=== PATIENT | female | born 1995 | race Caucasian/White ===

== ENCOUNTER → 2018-11-26 | Outpatient (CLI) | payer BC ==
--- NOTE | 2018-11-26 14:25 | Diagnostic Imaging Report ---
INDICATION: Pain in the center of the chest. TIME OF EXAM: 01:12 p.m. COMPARISON: No prior studies are available for comparison. FINDINGS: The heart size is normal. The pulmonary vascularity is unremarkable. The lungs are clear. No infiltrate, effusion or pneumothorax is detected. IMPRESSION: No acute cardiopulmonary process is detected. Dictated by: Dictated on workstation # [id number]
--- NOTE | 2018-11-26 15:32 | Diagnostic Imaging Report ---
INDICATION: Mid and upper back pain. TIME OF EXAMINATION: 1:13 PM. FINDINGS: Slight left convexity lower thoracic and upper lumbar scoliotic curvature is noted. The vertebral body heights are maintained. The pedicles and paraspinous line are intact. There are no fractures. IMPRESSION: Mild lower thoracic scoliotic curvature. No acute bony abnormality is detected. Dictated by: Dictated on workstation # [id number]
== END ==
LOC: RAD 12:55
PROVIDERS: ATTEND Family Medicine
DX: M41.84 Other forms of scoliosis, thoracic region (principal); R07.89 Other chest pain
CPT/HCPCS: 71045; 72072

== ENCOUNTER 2019-02-12 23:55 | Emergency (ER) | payer BC, MEDICAID ==
[~2019-02-12] VITALS: Ht 162.6 cm; Wt 54.5 kg
[2019-02-13] MEDS ORDERED: diphenhydrAMINE 25 MG TAB (BENADRYL) PO ONE (00:15)
[2019-02-13] MEDS ORDERED: ACETAMINOPHEN 325 MG TABLET PO ONE (00:15)
[2019-02-13 00:36] LABS: BASOPHILS % (AUTO) 0 % (0-10); EOSINOPHILS # (AUTO) 0.1 10^3/uL (0.0-0.3); EOSINOPHILS % (AUTO) 1 % (0-10); HEMATOCRIT 36 % (35-52); HEMOGLOBIN 12.4 G/DL (11.5-16.0); LYMPHOCYTES # (AUTO) 2.6 X 10^3 (1.0-4.0); LYMPHOCYTES % (AUTO) 25 % (12-44); MEAN CORPUSCULAR HEMOGLOBIN 31 PG (25-34); MEAN CORPUSCULAR HGB CONC 34 G/DL (32-36); MEAN CORPUSCULAR VOLUME 89 FL (80-99); MEAN PLATELET VOLUME 10.4 FL (7.4-10.4); MONOCYTES # (AUTO) 0.8 X 10^3 (0.0-1.0); MONOCYTES % (AUTO) 8 % (0-12); NEUTROPHILS # (AUTO) 6.7 X 10^3 (1.8-7.8); NEUTROPHILS % (AUTO) 66 % (42-75); PLATELET COUNT 193 10^3/uL (130-400); RED CELL DISTRIBUTION WIDTH 12.6 % (10.0-14.5); WHITE BLOOD COUNT 10.1 10^3/uL (4.3-11.0)
[2019-02-13 01:17] LABS: BACTERIA,URINE TRACE /HPF; BILIRUBIN,URINE NEGATIVE (NEGATIVE); CLARITY,URINE CLEAR; COLOR,URINE YELLOW; GLUCOSE, URINE (UA) NEGATIVE (NEGATIVE); KETONES,URINE NEGATIVE (NEGATIVE); LEUKOCYTE ESTERASE ,URINE 1+ (NEGATIVE); NITRITE,URINE NEGATIVE (NEGATIVE); PH,URINE 6 (5-9); PROTEIN,URINE NEGATIVE (NEGATIVE); UROBILINOGEN,URINE NORMAL (NORMAL); WBC,URINE 0-2 /HPF
[2019-02-13 01:18] LABS: AMORPHOUS SEDIMENT,UR MOD AMOR URATES /LPF
--- NOTE | 2019-02-13 01:52 | ED GU-Female ---
General Chief Complaint: NETWORK ENGINEERING ADVISOR Stated Complaint: 11 WKS PREG CRAMPING,DISCHARGE Nursing Triage Note: Pt amb to room #9 with c/o lower abd cramping. Pt reports @ approx 2000 on 02/12/19 abd discomfort began. Pt reports to be apprrox 11wks . Denies spotting or bleeding. Reports increase in clear discharge. Nursing Sepsis Screen: No Definite Risk Source: patient Exam Limitations: no limitations History of Present Illness Date Seen by Provider: Feb 13, 2019 Time Seen by Provider: 00:06 Initial Comments This 23-year-old young lady presents to the emergency room at about 11 weeks gestational age with complaints of pelvic cramping that started around 20:00. She has noticed an increase in vaginal discharge that is clearish white without odor. She has established care with Dr. Payne. She reports an ultrasound performed in the office showed an intrauterine . She reports screening had been performed for vaginal infection and she has not had any new sexual partners since then. Earlier today she was feeling anxious and dizzy. She denies any history of vaginal infections. She does run for exercise and states she has noticed some cramping after exercising. She has eased up on her exercising since then. Allergies and Home Medications Allergies Coded Allergies: Sulfa (Sulfonamide Antibiotics) (Verified Allergy, Unknown, 02/13/19) Patient Home Medication List Home Medication List Reviewed: Yes Review of Systems Review of Systems Constitutional: no symptoms reported EENTM: no symptoms reported Respiratory: no symptoms reported Cardiovascular: no symptoms reported Gastrointestinal: see HPI Genitourinary: see HPI : Yes LMP: Nov 23, 2018 Musculoskeletal: no symptoms reported Skin: no symptoms reported Psychiatric/Neurological: No Symptoms Reported Endocrine: No Symptoms Reported Hematologic/Lymphatic: No Symptoms Reported Past Kvjhrao-Hgpcur-Swtrsi Hx Past Med/Social Hx: Reviewed Nursing Past Med/Soc Hx Patient Social History Alcohol Use: Denies Use Recreational Drug Use: No Smoking Status: Never a Smoker 2nd Hand Smoke Exposure: No Recent Foreign Travel: No Contact w/Someone Who Travel: No Recent Infectious Disease Expo: No Recent Hopitalizations: No Past Medical History Surgeries: Yes (Bowen teeth removal ) Respiratory: No Cardiac: No Neurological: No : Yes Last Menstrual Period: Nov 23, 2018 Hx Total # of Abortions (Sp): 1 (One therapeutic ) Reproductive Disorders: Yes Sexually Transmitted Disease: No HIV/AIDS: No Genitourinary: No Gastrointestinal: No Musculoskeletal: No Endocrine: No Cancer: No Psychosocial: No Integumentary: No Physical Exam Vital Signs Vital Signs - First Documented 02/13/19 00:05 Temp 36.8 Pulse 76 Resp 16 B/P (MAP) 124/89 (101) Pulse Ox 100 O2 Delivery Room Air Capillary Refill : Less Than 3 Seconds Height, Weight, BMI Height: '" Weight: lbs. oz. kg; 20.00 BMI Method: General Appearance: WD/WN, no apparent distress HEENT: PERRL/EOMI, normal ENT inspection Neck: normal inspection Cardiovascular: regular rate, rhythm, no edema, no murmur Respiratory: lungs clear, normal breath sounds, no respiratory distress, no accessory muscle use Gastrointestinal: normal bowel sounds, soft, tenderness (mild at the bilateral adnexa) Extremities: normal inspection, no pedal edema Neurologic/Psychiatric: porcelain buildup assistant II-XII nml as tested, no motor/sensory deficits, alert, normal mood/affect, oriented x 3 Skin: normal color, warm/dry Progress/Results/Core Measures Suspected Sepsis Recent Fever Within 48 Hours: No Infection Criteria Present: None New/Unexplained Altered Menta: No Sepsis Screen: No Definite Risk SIRS Temperature: Pulse: 76 Respiratory Rate: 16 Laboratory Tests 02/13/19 00:30: White Blood Count 10.1 Blood Pressure 124 /89 Mean: 101 Laboratory Tests 02/13/19 00:30: Platelet Count 193 Results/Orders Lab Results Laboratory Tests Test 02/13/19 00:30 02/13/19 00:34 Range/Units White Blood Count 10.1 4.3-11.0 10^3/uL Red Blood Count 4.06 L 4.35-5.85 10^6/uL Hemoglobin 12.4 11.5-16.0 G/DL Hematocrit 36 35-52 % Mean Corpuscular Volume 89 80-99 FL Mean Corpuscular Hemoglobin 31 25-34 PG Mean Corpuscular Hemoglobin Concent 34 32-36 G/DL Red Cell Distribution Width 12.6 10.0-14.5 % Platelet Count 193 130-400 10^3/uL Mean Platelet Volume 10.4 7.4-10.4 FL Neutrophils (%) (Auto) 66 42-75 % Lymphocytes (%) (Auto) 25 12-44 % Monocytes (%) (Auto) 8 0-12 % Eosinophils (%) (Auto) 1 0-10 % Basophils (%) (Auto) 0 0-10 % Neutrophils # (Auto) 6.7 1.8-7.8 X 10^3 Lymphocytes # (Auto) 2.6 1.0-4.0 X 10^3 Monocytes # (Auto) 0.8 0.0-1.0 X 10^3 Eosinophils # (Auto) 0.1 0.0-0.3 10^3/uL Basophils # (Auto) 0.0 0.0-0.1 10^3/uL Human Chorionic Gonadotropin, Quant 61561 H <5 MIU/ML Urine Color YELLOW Urine Clarity CLEAR Urine pH 6 5-9 Urine Specific [place] 1.025 H 1.016-1.022 Urine Protein NEGATIVE NEGATIVE Urine Glucose (UA) NEGATIVE NEGATIVE Urine Ketones NEGATIVE NEGATIVE Urine Nitrite NEGATIVE NEGATIVE Urine Bilirubin NEGATIVE NEGATIVE Urine Urobilinogen NORMAL NORMAL MG/DL Urine Leukocyte Esterase 1+ H NEGATIVE Urine RBC (Auto) NEGATIVE NEGATIVE Urine RBC NONE /HPF Urine WBC 0-2 /HPF Urine Squamous Epithelial Cells 2-5 /HPF Urine Crystals PRESENT H /LPF Urine Amorphous Sediment MOD PEPITO URATES H /LPF Urine Bacteria TRACE /HPF Urine Casts NONE /LPF Urine Mucus NEGATIVE /LPF Urine Culture Indicated NO My Orders Orders - RANJIT JAMES MD Cbc With Automated Diff (02/13/19 00:14) Hcg,Quantitative (02/13/19 00:14) Ua Culture If Indicated (02/13/19 00:14) Acetaminophen Tablet/Caplet (Tylenol T (02/13/19 00:15) Diphenhydramine Tablet (Benadryl Tablet) (02/13/19 00:15) Medications Given in ED Current Medications Medications Dose Ordered Sig/Ashley Route Start Time Stop Time Status Last Admin Dose Admin Acetaminophen 650 mg ONCE ONCE PO 02/13/19 00:15 02/13/19 00:17 DC 02/13/19 00:27 650 MG Diphenhydramine HCl 25 mg ONCE ONCE PO 02/13/19 00:15 02/13/19 00:17 DC 02/13/19 00:27 25 MG Vital Signs/I&O 02/13/19 02/13/19 00:05 01:58 Temp 36.8 36.8 Pulse 76 61 Resp 16 16 B/P (MAP) 124/89 (101) 98/64 (101) Pulse Ox 100 99 O2 Delivery Room Air Room Air Capillary Refill : Less Than 3 Seconds Blood Pressure Mean: 101 Progress Note : Progress Note Oral hydration was encouraged. She was treated with Tylenol and Benadryl. She had significant improvement in her cramping. HCG level was appropriate for gestational age. No vaginal bleeding was reported. Patient is to follow-up with Dr. Payne. Departure Impression Primary Impression: Abdominal cramping affecting Disposition: HOME, SELF-CARE Condition: Improved Departure-Patient Inst. Decision time for Depature: 01:51 Referrals: ANNE LAWRENCE MD (PCP/Family) Primary Care Physician Patient Instructions: Stomach Pain in Early Add. Discharge Instructions: Stay well hydrated with plenty of clear liquids. If cramping returns, you may safely try Tylenol (acetaminophen) up to 650 mg every 6 hours and/or Benadryl (d iphenhydramine) up to 25 mg every [address] Payne's office later this morning to inform them of your cramping issues. Return to the emergency room if you have worsening symptoms. All discharge instructions reviewed with patient and/or family. Voiced understanding. Copy Copies To 1: FELIBERTO PAYNE MD, JOSHUA T MD Feb 13, 2019 01:52
[2019-02-13 01:58] VITALS: BP 98/64
== END 2019-02-13 01:58 | disposition home or self-care (01) ==
LOC: EDUNIT# 23:55 → ER 23:59
DX: O26.891 Other specified pregnancy related conditions, first trimester (principal); R10.9 Unspecified abdominal pain; Z3A.11 11 weeks gestation of pregnancy; Z88.2 Allergy status to sulfonamides
CPT/HCPCS: 36415; 81000; 84702; 85025

== ENCOUNTER 2019-06-06 22:24 | Emergency (ER) | payer BC, MEDICAID ==
[~2019-06-06] VITALS: Ht 162 cm; Wt 62.0 kg
[2019-06-06] MEDS ORDERED: ACETAMINOPHEN 500 MG TAB (TYLENOL) PO STA (23:05)
--- NOTE | 2019-06-06 23:13 | ED Cough/URI ---
General Chief Complaint: Cough/Cold/Flu Symptoms Stated Complaint: 28 WKS PREG/CP/COLD FLU SYMPTOMS Source: patient Exam Limitations: no limitations History of Present Illness Date Seen by Provider: Jun 06, 2019 Time Seen by Provider: 22:54 Initial Comments Here with report of fever, chills, body aches, runny nose and mild cough. She is approximately 28 weeks . Denies nausea, vomiting or diarrhea. Timing/Duration: this morning Severity/Quality: mild, dry cough Prior Episodes/Possible Cause: no prior episodes Modifying Factors: Improves With Rest Associated Symptoms: cough, fever/chills, muscle aches, nasal congestion, nasal drainage, shortness of breath, sore throat Allergies and Home Medications Allergies Coded Allergies: Sulfa (Sulfonamide Antibiotics) (Verified Allergy, Unknown, 02/13/19) Patient Home Medication List Home Medication List Reviewed: Yes Review of Systems Review of Systems Constitutional: see HPI, chills, fever EENTM: nose congestion; No ear pain Respiratory: cough; No short of breath Cardiovascular: no symptoms reported Gastrointestinal: no symptoms reported Genitourinary: no symptoms reported : Yes Skin: no symptoms reported Past Ataviqh-Biyuhm-Nmnphl Hx Past Med/Social Hx: Reviewed Nursing Past Med/Soc Hx Patient Social History Alcohol Use: Denies Use Recreational Drug Use: No Smoking Status: Never a Smoker 2nd Hand Smoke Exposure: No Recent Foreign Travel: No Contact w/Someone Who Travel: No Recent Hopitalizations: No Past Medical History Surgeries: Yes (Warner teeth removal ) Respiratory: No Cardiac: No Neurological: No Reproductive Disorders: Yes Sexually Transmitted Disease: No HIV/AIDS: No Genitourinary: No Gastrointestinal: No Musculoskeletal: No Endocrine: No Cancer: No Psychosocial: No Integumentary: No Family Medical History Reviewed Nursing Family Hx No Pertinent Family Hx Physical Exam Capillary Refill : Height: '" Weight: lbs. oz. kg; 20.00 BMI Method: General Appearance: WD/WN, no apparent distress HEENT: PERRL/EOMI, pharyngeal erythema, other (bilateral nasal congestion with clear rhinorrhea moderate erythema) Neck: full range of motion, supple Respiratory: lungs clear, normal breath sounds Cardiovascular: no murmur, tachycardia Gastrointestinal: non tender, soft, other (gravid 4 cm above the umbilicus) Extremities: non-tender, normal inspection Neurologic/Psychiatric: alert, oriented x 3 Skin: normal color, warm/dry Progress/Results/Core Measures Suspected Sepsis SIRS Temperature: Pulse: Respiratory Rate: Blood Pressure / Mean: Results/Orders Micro Results Microbiology 06/06/19 Influenza Types A,B Antigen (JASON) - Final, Complete My Orders Orders - BETHANY POZO MD Influenza A And B Antigens (06/06/19 22:27) Acetaminophen Tablet (Tylenol Tablet) (06/06/19 23:05) Oseltamivir 75 Mg Capsule (Tamiflu 75 (06/06/19 23:15) Vital Signs/I&O Capillary Refill : Progress Note : Progress Note Seen and evaluated. Influenza screen ordered. Patient has positive for influenza B. Patient is in the high risk category according to CDC guidelines. This was discussed with the patient. Tamiflu 75 mg by mouth initiated. Tylenol 1 g by mouth given. Discharged home with return precautions. Patient verbalize understanding instructions and agreement with plan. Departure Impression Primary Impression: Influenza B Disposition: HOME, SELF-CARE Condition: Stable Departure-Patient Inst. Decision time for Depature: 23:11 Referrals: FELIBERTO DRAKE MD (PCP) Primary Care Physician ANNE LAWRENCE MD (Family) Primary Care Physician Patient Instructions: Flu, Adult (DC) Add. Discharge Instructions: All discharge instructions reviewed with patient and/or family. Voiced understanding. Take medications as directed. You may take Tylenol/acetaminophen 650 mg every 6 hours as needed for fever or pain. You may use Afrin nasal spray or the generic, 12 hour relief, 2 sprays to each nostril twice daily for 3 days only and then stop. Do not use more than 3 days. Follow-up with your OB doctor and inform them of the diagnosis. Return for worse pain, fever, vomiting, weakness, breathing problems or other concerns as needed. Scripts Oseltamivir Phosphate (Oseltamivir Phosphate) 75 Mg Capsule 75 MG PO BID for 5 Days, #9 CAP 0 Refills Prov: BETHANY POZO MD 06/06/19 Work/School Note: Work Release Form Date Seen in the Emergency Department: Jun 06, 2019 Return to Work: Jun 08, 2019 Restrictions: Return-No Fever (24hrs) Copy Copies To 1: FELIBERTO DRAKE MD, TIMOTHY D MD Jun 06, 2019 23:13
[2019-06-06] MEDS ORDERED: OSEL75CA15 PO (23:14)
[2019-06-06] MEDS ORDERED: OSELTAMIVIR 75 MG (TAMIFLU) CAPSULE PO ONE (23:15)
[2019-06-06 23:33] VITALS: BP 122/80
== END 2019-06-06 23:34 | disposition home or self-care (01) ==
LOC: EDUNIT# 22:24 → ER 22:26
DX: O99.513 Diseases of the respiratory system complicating pregnancy, third trimester (principal); J10.1 Influenza due to other identified influenza virus with other respiratory manifestations; Z3A.28 28 weeks gestation of pregnancy; Z88.2 Allergy status to sulfonamides
CPT/HCPCS: 87804

== ENCOUNTER 2019-08-26 07:00 | Inpatient (IN) | payer BC, MEDICAID ==
--- NOTE | 2019-08-21 10:43 | Discharge Inst-Surgical ---
Discharge Inst-Surgical Depart Medication/Instructions New, Converted or Re-Newed RX: RX on Chart Consults/Follow Up Patient Instructions: as directed Orders & Referrals Follow Up Appt: Call to make follow up appt. for patient in 4 weeks. Activity Per routine post vaginal delivery instructions. Please call in RX to patient pharmacy. Diet as tolerated Patient may shower or tub bathe as desired. Activity Activity as Tolerated: No Diet Discharge Diet: No Restrictions FELIBERTO DRAKE MD Aug 21, 2019 10:43
[2019-08-26] VITALS (54 sets, daily range): BP systolic 106–141; BP diastolic 56–92
[~2019-08-26] VITALS: Ht 162.6 cm; Wt 69.0 kg
[~2019-08-26 07:00] MED LIST: OSEL75CA15 PO
[2019-08-26] MEDS ORDERED: OXYTOCIN PRE-MIX DRIP 500 ML IV SCH ×2 (07:15→20:28)
--- NOTE | 2019-08-26 07:16 | NUR ---
TENISHA ELDRIDGE presented to unit from ED, accompanied by significant other, with c/o INDUCTION. TENISHA ELDRIDGE weighed, gowned, voided, and to bed. EFHM and TOCO applied, VS taken. TENISHA ELDRIDGE oriented to bed controls, call light, TV, heat, and A/C controls.
--- OUTSIDE RECORDS SUMMARY | 2019-08-26 07:32 | XMS REPORT | Continuity of Care Document ---
Author Organization Unknown Address Unknown Phone Unavailable Allergies Active Description Code Type Severity Reaction Onset Reported/Identified Relationship to Patient Clinical Status Yes Sulfa (Sulfonamide Antibiotics) [id number] Drug Allergy Unknown N/A 019 Medications There is no data. Problems Date Dx Coded Attending Type Code Diagnosis Diagnosed By 11/29/2018 ANNE LAWRENCE MD Ot M41. 84 OTHER FORMS OF SCOLIOSIS, THORACIC REGIO 11/29/2018 ANNE LAWRENCE MD Ot R07. 89 OTHER CHEST PAIN 12/02/2018 ANNE LAWRENCE MD Ot M41. 84 OTHER FORMS OF SCOLIOSIS, THORACIC REGIO 12/02/2018 ANNE LAWRENCE MD Ot R07. 89 OTHER CHEST PAIN 12/16/2018 ANNE LAWRENCE MD Ot M41. 84 OTHER FORMS OF SCOLIOSIS, THORACIC REGIO 12/16/2018 ANNE LAWRENCE MD Ot R07. 89 OTHER CHEST PAIN 02/13/2019 RANJIT JAMES MD Ot O26.891 OT RELATED CONDITIONS, FIRST 02/13/2019 RANJIT JAMES MD Ot R10.9 UNSPECIFIED ABDOMINAL PAIN 02/13/2019 RANJIT JAMES MD Ot Z3A.11 11 WEEKS GESTATION OF 02/13/2019 RANJIT JAMES MD Ot Z88.2 ALLERGY STATUS TO SULFONAMIDES STATUS 02/17/2019 RANJIT JAMES MD Ot O26.891 OT RELATED CONDITIONS, FIRST 02/17/2019 RANJIT JAMES MD Ot R10.9 UNSPECIFIED ABDOMINAL PAIN 02/17/2019 RANJIT JAMES MD Ot Z3A.11 11 WEEKS GESTATION OF 02/17/2019 RANJIT JAMES MD Ot Z88.2 ALLERGY STATUS TO SULFONAMIDES STATUS 06/06/2019 SÁNCHEZ VELASQUEZ, BETHANY Murrell Ot J10.1 FLU DUE TO OTH IDENT INFLUENZA VIRUS W O 06/06/2019 BETHANY POZO MD Ot O99.513 DISEASES OF THE RESP SYS COMP , 06/06/2019 BETHANY POZO MD, Ot Z3A.28 28 WEEKS GESTATION OF 06/06/2019 BETHANY POZO MD, Ot Z88.2 ALLERGY STATUS TO SULFONAMIDES STATUS 06/10/2019 BETHANY POZO MD, Ot J10.1 FLU DUE TO OTH IDENT INFLUENZA VIRUS W O 06/10/2019 BETHANY POZO MD, Ot O99.513 DISEASES OF THE RESP SYS COMP , 06/10/2019 BETHANY POZO MD, Ot Z3A.28 28 WEEKS GESTATION OF 06/10/2019 BETHANY POZO MD, Ot Z88.2 ALLERGY STATUS TO SULFONAMIDES STATUS Procedures There is no data. Results Test Result Range Complete blood count (CBC) with automate d white blood cell (WBC) differential - 02/13/19 00:30 Blood leukocytes automated count (number/volume) 10.1 10*3/uL 4.3-11.0 Blood erythrocytes automated count (number/volume) 4.06 10*6/uL 4.35-5.85 Venous blood hemoglobin measurement (mass/volume) 12.4 g/dL 11.5-16.0 Blood hematocrit (volume fraction) 36 % 35-52 Automated erythrocyte mean corpuscular volume 89 [ foz_us] 80-99 Automated erythrocyte mean corpuscular h emoglobin (mass per erythrocyte) 31 pg 25-34 Automated erythrocyte mean corpuscular h emoglobin concentration measurement (mass/volume) 34 g/dL 32-36 Automated erythrocyte distribution width ratio 12. 6 % 10.0- 14.5 Automated blood platelet count (count/volume) 193 10*3/uL 130-400 Automated blood platelet mean volume measurement 10.4 [foz_us] 7.4-10.4 Automated blood neutrophils/100 leukocytes 66 % 42-75 Automated blood lymphocytes/100 leukocytes 25 % 12-44 Blood monocytes/100 leukocytes 8 % 0-12 Automated blood eosinophils/100 leukocytes 1 % 0-10 Automated blood basophils/100 leukocytes 0 % 0-10 Blood neutrophils automated count (number/volume) 6.7 10*3 1.8-7.8 Blood lymphocytes automated count (number/volume) 2.6 10*3 1.0-4.0 Blood monocytes automated count (number/volume) 0. 8 10*3 0.0-1.0 Automated eosinophil count 0.1 10*3/uL 0 .0-0.3 Automated blood basophil count (count/volume) 0.0 10*3/uL 0.0-0.1 Serum or plasma choriogonadotropin measu rement (units/volume) - 02/13/19 00:30 Serum or plasma choriogonadotropin measurement (units/ volume) 16035 m[iU]/mL <5 Complete urinalysis with reflex to cultu re - 02/13/19 00:34 Urine color determination YELLOW NRG Urine clarity determination CLEAR NR G Urine pH measurement by test strip 6 5-9 Specific gravity of urine by test strip 1.025 1.016-1.022 Urine protein assay by test strip, semi-quantitative NEGATIVE NEGATIVE Urine glucose detection by automated test strip NE GATIVE NEGATIVE Erythrocytes detection in urine sediment by light micr oscopy NEGATIVE NEGATIVE Urine ketones detection by automated test strip NE GATIVE NEGATIVE Urine nitrite detection by test strip NEGATIVE NEGATIVE Urine total bilirubin detection by test strip NEGA TIVE NEGATIVE Urine urobilinogen measurement by automated test strip (mass/volume) NORMAL NORMAL Urine leukocyte esterase detection by dipstick 1+ NEGATIVE Automated urine sediment erythrocyte cou nt by microscopy (number/high power field) NONE NRG Automated urine sediment leukocyte count by microscopy (number/high power field) [HPF] NRG Bacteria detection in urine sediment by light microsco py TRACE NRG Squamous epithelial cells detection in u rine sediment by light microscopy 2-5 NRG Crystals detection in urine sediment by light microsco py PRESENT NRG Casts detection in urine sediment by light microscopy NONE NRG Mucus detection in urine sediment by light microscopy NEGATIVE NRG Complete urinalysis with reflex to culture NO NRG Amorphous sediment detection in urine sediment by ligh t microscopy MOD PEPITO URATES NRG Influenza virus A and B antigen detectio n - 06/06/19 22:35 CALL POSITIVES (F1 HELP) GRAY @ 9077 NRG FLU RESULT POSITIVE FOR INFLUENZA B ANT IGEN, NEG FOR A ANTIGEN, BY IA NRG Encounters ACCT No. Visit Date/Time Discharge Status Pt. Type Provider Facility Loc./Unit Complaint [id number] 06/06/2019 22:26:00 020 23:34:00 DIS Emergency SÁNCHEZ VELASQUEZ, BETHANY Murrell [facility] ER 28 WKS PREG/CP/ COLD FLU SYMPTOMS [id number] 02/12/2019 23:59:00 019 01:58:00 DIS Emergency ERIKA VELASQUEZ, RANJIT Mo [facility] ER 11 WKS PREG CRAMPING,DISCHARGE [id number] 11/26/2018 12:55:00 23:59:59 CLS Outpatient HOWARD VELASQUEZ, ANNE Miller [facility] RAD CHEST PAIN,RIB PAIN,TSP INE PAIN [id number] 08/26/2019 07:00:00 P RUBI DRAKE MD, FELIBERTO CARBALLO
[2019-08-26 07:59] LABS: BASOPHILS % (AUTO) 0 % (0-10); EOSINOPHILS % (AUTO) 0 % (0-10); HEMATOCRIT 37 % (35-52); HEMOGLOBIN 12.5 G/DL (11.5-16.0); LYMPHOCYTES # (AUTO) 2.2 X 10^3 (1.0-4.0); LYMPHOCYTES % (AUTO) 21 % (12-44); MEAN CORPUSCULAR HEMOGLOBIN 30 PG (25-34); MEAN CORPUSCULAR HGB CONC 34 G/DL (32-36); MEAN CORPUSCULAR VOLUME 90 FL (80-99); MEAN PLATELET VOLUME 11.6 FL (7.4-10.4); MONOCYTES # (AUTO) 1.2 X 10^3 (0.0-1.0); MONOCYTES % (AUTO) 11 % (0-12); NEUTROPHILS # (AUTO) 7.1 X 10^3 (1.8-7.8); NEUTROPHILS % (AUTO) 68 % (42-75); PLATELET COUNT 174 10^3/uL (130-400); RED CELL DISTRIBUTION WIDTH 12.9 % (10.0-14.5); WHITE BLOOD COUNT 10.5 10^3/uL (4.3-11.0)
[2019-08-26] MEDS: D5 LR IV SOLUTION 1,000 ML IV SCH ×2 (08:04→12:24)
[2019-08-26 09:18] LABS: BILIRUBIN,URINE NEGATIVE (NEGATIVE); CLARITY,URINE CLEAR; COLOR,URINE YELLOW; GLUCOSE, URINE (UA) NEGATIVE (NEGATIVE); KETONES,URINE NEGATIVE (NEGATIVE); LEUKOCYTE ESTERASE ,URINE NEGATIVE (NEGATIVE); NITRITE,URINE NEGATIVE (NEGATIVE); PH,URINE 6.5 (5-9); PROTEIN,URINE NEGATIVE (NEGATIVE)
[2019-08-26] MEDS ORDERED: fentaNYL 2 mcg/ml BUPIVA 0.125 100 ML ONE (09:21)
[2019-08-26] MEDS ORDERED: LACTATED RINGERS 1,000 ML IV ONE (09:21)
[2019-08-26 09:29] LABS: BACTERIA,URINE FEW /HPF; RBC,URINE RARE /HPF; WBC,URINE RARE /HPF
[2019-08-26] MEDS ORDERED: BUPIVACAINE 0.25% 30 ML (SENSORCAINE) VIAL ONE (09:36)
[2019-08-26] MEDS ORDERED: fentaNYL INJECTION 100 MCG/2 ML AMP ONE (09:37)
--- NOTE | 2019-08-26 09:45 | NUR ---
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 Procedure explained, consent reviewed and signed by anesthesia. Questions answered to patient's satisfaction. Time out taken to verify correct patient/procedure. Patient up to side of bed, assisted into sitting position. Betadine prep done x3 and sterile drape applied. Local done, see anesthesia record. Test dose given, see anesthesia record for drug and dosage. Epidural catheter secured in place. Epidural placement complete. Assisted back into bed, monitors adjusted. Epidural dosed, see anesthesia record. Epidural of Fentanyl/Bupivicaine @ 12 cc/hr stated per pump. Patient tolerated procedure well.
[2019-08-26] MEDS: EPIDURAL (fentaNYL 2 MCG/ML BUPIVA 0.125%)100 ML BAG EPI PRN ×2 (09:57→17:13)
[2019-08-26] MEDS ORDERED: LACTATED RINGERS 1,000 ML IV SCH (10:17)
[2019-08-26] MEDS ORDERED: diphenhydrAMINE 50 MG/ML INJ (BENADRYL) IV PRN (10:30)
[2019-08-26] MEDS ORDERED: ONDANSETRON 4 MG/2 ML (SDV) Z0FRAN IV PRN (10:30)
[2019-08-26] MEDS ORDERED: NALOXONE 0.4 MG/ML 1 ML (NARCAN) VIAL IV PRN ×2 (10:30)
[2019-08-26] MEDS ORDERED: METOCLOPRAMIDE INJ 10 MG/2 ML (REGLAN) IV PRN (10:30)
[2019-08-26] MEDS ORDERED: hydrOXYzine (VISTARIL/ATARAX) 25 MG capsule/tablet ONE (11:42)
[2019-08-26] MEDS ORDERED: hydrOXYzine (VISTARIL/ATARAX) 25 MG capsule/tablet PO NR (11:45)
[2019-08-26] MEDS: ONDANSETRON 4 MG/2 ML (SDV) Z0FRAN IVP PRN ×2 (11:48→14:58)
[2019-08-26] MEDS ORDERED: PNV11TAB5 PO (13:21)
[2019-08-26] MEDS ORDERED: LIDOCAINE/EPI 2% 1:200,00 (XYLOCAINE) 10 ML VIAL ONE (18:50)
[2019-08-26] MEDS ORDERED: KETOROLAC 30 MG/ML VIAL ONE (20:22)
[2019-08-26] MEDS ORDERED: TETANUS,DIPTH,PERTUSS P/F (BOOSTRIX) 0.5 ML VIAL IM ONE (20:30)
[2019-08-26] MEDS ORDERED: ONDANSETRON 4 MG/2 ML (SDV) Z0FRAN IVP PRN (20:30)
[2019-08-26] MEDS ORDERED: BENZOCAINE/MENTHOL (DERMOPLAST) 60 ML CAN TP PRN (20:30)
[2019-08-26] MEDS ORDERED: MEASLES,MUMPS,RUBELLA 1 EA INJ SC ONE (20:30)
[2019-08-26] MEDS: KETOROLAC 30 MG/ML VIAL IVP SCH (20:32)
--- NOTE | 2019-08-26 20:47 | OPERATIVE REPORT ---
DATE OF SERVICE: 08/26/2019 DELIVERY NOTE The patient delivered by term spontaneous vaginal delivery at 39 weeks gestation a viable female infant with Apgars of 9 and 9 at 1 and 5 minutes respectively, weight of 7 pounds 1 ounce. time of 2000. Cord pH is pending. The infant was delivered over a second-degree laceration that was a tear of perineum posterior vaginal wall and perineal skin. The delivery was accomplished under epidural, augmented with local in the perineum. The infant was bulb suctioned on delivery of the head and again on completion of delivery. The umbilical cord was doubly clamped when it was pulseless. Father cut the cord, the baby was passed to mom's abdomen. Cord bloods were obtained. The placenta delivered fairly promptly spontaneously Mott's. It was a heart shaped placenta with a 3-vessel cord. The cervix, vagina, rectum, and perineum were examined and found intact, except for the tear to the posterior vaginal wall and perineal skin and perineal body, which were repaired with a single suture of 3-0 Vicryl Rapide in the usual manner without difficulty to good hemostasis. Sponge and needle counts were correct on completion of delivery and repair. Estimated blood loss was around 200 mL. The patient tolerated the delivery and the repair well and remained in the LDR for recovery. The baby remained with the mom. Job ID: [id number] DocumentID: [id number] Dictated Date: 08/26/2019 20:22:44 Hair Cutter Date: 08/26/2019 20:46:25 Dictated By: FELIBERTO DRAKE MD
[2019-08-26] MEDS: oxyCODONE/APAP 5/325MG (PERCOCET 5) TABLET PO PRN (22:35)
[2019-08-26] MEDS: DOCUSATE SODIUM 100 MG (COLACE) CAP PO SCH (22:35)
--- NOTE | 2019-08-26 23:00 | NUR ---
pt up to the bathroom, positive void. pt assisted to w'c and taken down to room 310. pt orientated to room. call light within reach. info papers discussed. pt denies any needs. will continue to monitor.
[2019-08-27] MEDS: KETOROLAC 30 MG/ML VIAL IVP SCH (02:37)
[2019-08-27] MEDS: oxyCODONE/APAP 5/325MG (PERCOCET 5) TABLET PO PRN ×4 (03:02→23:05)
[2019-08-27 03:30] VITALS: BP 115/66
--- NOTE | 2019-08-27 07:50 | Progress Note ---
Standard Progress Note Progress Notes/Assess & Plan Date Seen by a Provider: Aug 27, 2019 Time Seen by a Provider: 07:49 Progress/Assessment & Plan This patient is without complaint. She is ambulating, voiding, tolerating oral intake well has good pain control. Vital Signs 08/26/19 08/27/19 17:30 03:30 Temp 37.0 Pulse 77 Resp 18 B/P (MAP) 115/66 (82) Pulse Ox 99 O2 Delivery Room Air VSS. Patient is afebrile. Fundus is firm below the umbilicus is nontender. Extremities show no clubbing cyanosis. There is no Homans sign. Assessment and plan day number 1 status post term spontaneous vaginal delivery doing well plan is routine convalescence care Final Diagnosis 39 week spontaneous vaginal delivery FELIBERTO DRAKE MD Aug 27, 2019 07:50
[2019-08-27] MEDS ORDERED: DCS100C PO (07:58)
[2019-08-27] MEDS ORDERED: OXYC1TAB87 PO (07:58)
[2019-08-27] MEDS ORDERED: IBUP-1780 PO (07:58)
[2019-08-27 08:50] VITALS: BP 113/73
--- NOTE | 2019-08-27 08:50 | NUR ---
Perineal exam WNL's. Complains of severe pain and stitches are "bleeding". Moves very cautiously. S.o. asleep. 1230 Complains of severe pain - moves very slowly and cautiously. Gave another ice pack and witch bianca pads.
[2019-08-27] MEDS: IBUPROFEN 800 MG (MOTRIN) TAB PO SCH ×3 (08:55→22:00)
[2019-08-27] MEDS: DOCUSATE SODIUM 100 MG (COLACE) CAP PO SCH ×2 (08:55→20:28)
--- NOTE | 2019-08-27 11:08 | Anesthesia-General Post-Op ---
General Patient Condition Mental Status/LOC: Same as Preop Cardiovascular: Satisfactory Nausea/Vomiting: Absent Respiratory: Satisfactory Pain: Controlled Complications: Absent Post Op Complications Complications None Follow Up Care/Instructions Patient Instructions None needed. Anesthesia/Patient Condition Patient Condition Patient is doing well, no complaints, stable vital signs, no apparent adverse anesthesia problems. No complications reported per nursing. ANY CARRERA CRNA Aug 27, 2019 11:08
[2019-08-27] MEDS ORDERED: WITCH HAZEL(TUCKS) 40 EA JAR ONE (13:02)
[2019-08-27] MEDS ORDERED: WITCH HAZEL(TUCKS) 40 EA JAR TOP PRN (15:00)
[2019-08-27 16:15] VITALS: BP 117/66
[2019-08-27 20:30] VITALS: BP 116/78
[2019-08-28 02:15] VITALS: BP 124/80
[2019-08-28] MEDS: IBUPROFEN 800 MG (MOTRIN) TAB PO SCH ×2 (04:05→10:01)
--- NOTE | 2019-08-28 08:10 | Progress Note ---
Standard Progress Note Progress Notes/Assess & Plan Date Seen by a Provider: Aug 28, 2019 Time Seen by a Provider: 08:09 Progress/Assessment & Plan This patient is without complaint. She is ambulating, voiding, tolerating oral intake well has good pain control. Vital Signs 08/26/19 08/27/19 17:30 03:30 Temp 37.0 Pulse 77 Resp 18 B/P (MAP) 115/66 (82) Pulse Ox 99 O2 Delivery Room Air VSS. Patient is afebrile. Fundus is firm below the umbilicus is nontender. Extremities show no clubbing cyanosis. There is no Homans sign. Assessment and plan day number 1 status post term spontaneous vaginal delivery doing well plan is routine convalescence care August 28, 2019 Patient is without complaint. She is ambulating, voiding, tolerating oral intake well has good pain control. She does complain of some anxiety with which she has issues in the past Vital Signs 08/28/19 02:15 Temp 36.4 Pulse 75 Resp 18 B/P (MAP) 124/80 (95) Pulse Ox 99 O2 Delivery Room Air Vital signs are stable. Patient is afebrile. Fundus is firm below the umbilicus and nontender. Extremities show no clubbing cyanosis. There is no Homans sign. Assessment and plan day number 2 status post term spontaneous vaginal delivery at 39 weeks gestation. Patient is doing well. We will add hydroxyzine to her medications when necessary for anxiety. Plan is for discharge home with follow-up in clinic Final Diagnosis 39 week spontaneous vaginal delivery FELIBERTO DRAKE MD Aug 28, 2019 08:10
[2019-08-28] MEDS ORDERED: HYDR-3584 PO (08:11)
[2019-08-28] MEDS ORDERED: hydrOXYzine (ATARAX) 10 MG TAB PO PRN (08:15)
[2019-08-28] MEDS ORDERED: hydrOXYzine (VISTARIL/ATARAX) 25 MG capsule/tablet PO PRN (08:45)
[2019-08-28 09:15] VITALS: BP 120/71
[2019-08-28] MEDS: DOCUSATE SODIUM 100 MG (COLACE) CAP PO SCH (10:00)
[2019-08-28] MEDS: oxyCODONE/APAP 5/325MG (PERCOCET 5) TABLET PO PRN (10:01)
[2019-08-28] MEDS ORDERED: DIBUCAINE (NUPERCAINAL) 1% OINT 30 GM TOP PRN (10:45)
[2019-08-28 13:00] VITALS: BP 115/82
--- NOTE | 2019-08-28 16:30 | NUR ---
TENISHA ELDRIDGE demonstrates understanding of discharge instructions and accurately returns instructions upon questioning. Copy of Post-Discharge Instructions and Medication Discharge Instructions given to pt. TENISHA ELDRIDGE is able to manage continuing needs after discharge. Patients belongings returned to pt. Skin dry and intact; no breakdown noted. Patient discharged from [facility] on 08/28/19 at 1630. TENISHA ELDRIDGE left floor via ambulation, accompanied by and women serviceds staff. No s/s of distress.no concerns voiced at this time.
== END 2019-08-28 16:30 | disposition home or self-care (01) | DRG 807 ==
LOC: LDRP 07:10
PROVIDERS: ADMIT Obstetrics & Gynecology; ATTEND Obstetrics & Gynecology
PROC: 10E0XZZ Delivery of Products of Conception, External Approach (ICD-10-PCS; principal; 2019-08-26)
PROC: 0KQM0ZZ Repair Perineum Muscle, Open Approach (ICD-10-PCS; 2019-08-26)
DX: O70.1 Second degree perineal laceration during delivery (principal); Z37.0 Single live birth; Z3A.39 39 weeks gestation of pregnancy; Z23 Encounter for immunization
CPT/HCPCS: 36415; 81000; 85025; 86850; 86900; 86901; 87088; 90715